=== PATIENT | female | born 1950 | race Caucasian/White ===

== ENCOUNTER → 2024-02-11 12:39 | Outpatient (REF) | payer OTHER, SELFPAY | LOC: HWWDC 12:39 | PROVIDERS: ATTENDING PHYSICIAN Registered Nurse; FAMILY PHYSICIAN Internal Medicine | DX: Z12.31 Encounter for screening mammogram for malignant neoplasm of breast (principal); E04.1 Nontoxic single thyroid nodule; M81.0 Age-related osteoporosis without current pathological fracture; R91.1 Solitary pulmonary nodule | CPT/HCPCS: 71046; 76536 ==

== ENCOUNTER → 2025-03-05 09:46 | Outpatient (REF) | payer OTHER, SELFPAY | LOC: HWWDC 09:46 | PROVIDERS: ATTENDING PHYSICIAN Registered Nurse | DX: Z12.39 Encounter for other screening for malignant neoplasm of breast (principal) | CPT/HCPCS: 71046; 77063; 77067 ==

== ENCOUNTER 2025-03-20 06:18 | Day surgery (SDC) | payer OTHER, SELFPAY ==
[2025-03-02 09:30] LABS: Hematocrit 39.9 % (37.0-47.0); Hemoglobin 13.3 g/dL (12.0-16.0); Mean Corp Hgb Conc. 33.3 g/dL (33.0-37.0); Mean Corpuscular Volume 90.9 fL (81.0-99.0); Platelet Count 233 10^3/uL (130-400); Red Cell Dist. Width 12.7 % (11.5-14.5)
[2025-03-02 10:23] LABS: Blood Urea Nitrogen 13 mg/dl (7-17); Calcium 9.3 mg/dl (8.4-10.2); Carbon Dioxide 31 mmol/L (22-30); Chloride 103 mmol/L (98-107); Glucose 95 mg/dl (70-99); Potassium 5.5 mmol/L (3.5-5.1); Sodium 137 mmol/L (135-145); eGFR > 60.00
[2025-03-02 13:50] VITALS: BMI 26.1
--- NOTE | 2025-03-13 10:28 | PTCARENOTE ---
Patients 03/02 jennifer 5Jayna Cabrera @ Dr. Ledezma office notified
--- NOTE | 2025-03-15 14:37 | PTCARENOTE ---
Patients 03/02 potassium 5.5- reviewed by Dr. Franco- no additional interventions required
[2025-03-20] VITALS (8 sets, daily range): BP systolic 119–151; BP diastolic 54–69; BMI 26.1
[2025-03-20] MEDS: NORMOSOL-R/PLASMALYTE-A 1000 IV (09:03)
[2025-03-20] MEDS: HEPARIN 5000 UNITS SC (09:05)
[2025-03-20] MEDS: DILAUDID 0.25 MG IV (12:53)
[2025-03-20] MEDS: TORADOL 15 MG IV (13:19)
== END 2025-03-20 14:54 | disposition home or self-care (01) ==
LOC: SDS 06:18
PROVIDERS: ATTENDING PHYSICIAN Obstetrics & Gynecology; FAMILY PHYSICIAN Registered Nurse
DX: N81.2 Incomplete uterovaginal prolapse (principal); N39.3 Stress incontinence (female) (male); N95.8 Other specified menopausal and perimenopausal disorders; D25.9 Leiomyoma of uterus, unspecified
CPT/HCPCS: 57425; 58571; 57250; 57288; 80048; 85027; 86850; 86900; 86901; 88305; 88311; 93005; C1763; C1771